=== PATIENT | female | born 1970 | race Caucasian/White ===

== ENCOUNTER 2018-01-03 11:26 | Emergency (ER) | payer OTHER ==
[2018-01-03 11:33] VITALS: BP 146/94
[2018-01-03] MEDS ORDERED: Fluconazole 150 MG (NF) 150 MG TAB PO ONE (11:50)
--- NOTE | 2018-01-03 13:53 | ED ---
Emeterio Prater Gabriel, scribed for Renan Mohamud MD on 01/03/18 at 1144 . Skin Complaint - HPI Summary HPI Summary: This patient is a 47 year old F presenting to [facility] [place] after she went to the pharmacy to get some hydrocortisone cream for a rash caused by a bug bite. And when the pharmacist saw the rash she was sent her here to be checked for lyme disease. She is unaware when she got the rash but it has been less than 72 hours. The patient rates the pain 4/10 in severity. Patient reports a itching bullseye rash on her right calf. Patient denies fever and chills. - History of Current Complaint Chief Complaint: UCSkin Stated Complaint: TICK BITE Hx Obtained From: Patient Onset/Duration: Still Present Skin Exposure Onset/Duration: Days Ago Timing: Constant Onset Severity: Mild Current Severity: Mild Pain Intensity: 4 Pain Scale Used: 0-10 Numeric Skin Location: Leg Associated Signs & Symptoms: Negative - fevere and chills - Allergy/Home Medications Allergies/Adverse Reactions: Allergies Allergy/AdvReac Type Severity Reaction Status Date / Time epinephrine Allergy Tachycardia Verified 01/03/18 11:33 Home Medications: Home Medications Cholecalciferol (Vitamin D3) [Vitamin D3] 1,000 unit PO 01/03/18 [History] PMH/Surg Hx/FS Hx/Imm Hx Endocrine/Hematology History: Denies: Hx Diabetes, Hx Thyroid Disease Cardiovascular History: Denies: Hx Hypercholesterolemia, Hx Hypertension, Hx Peripheral Vascular Disease Respiratory History: Denies: Hx Chronic Obstructive Pulmonary Disease (COPD) Musculoskeletal History: Denies: Hx Arthritis, Hx Rheumatoid Arthritis, Hx Osteoporosis Sensory History: Denies: Hx Cataracts, Hx Contacts or Glasses, Hx Glaucoma Opthamlomology History: Denies: Hx Cataracts, Hx Contacts or Glasses, Hx Glaucoma Neurological History: Denies: Hx Headaches, Hx Seizures, Hx Transient Ischemic Attacks (TIA) Psychiatric History: Denies: Hx Anxiety, Hx Depression - Cancer History Hx Chemotherapy: No Hx Radiation Therapy: No - Surgical History Surgery Procedure, Year, and Place: ACL REPAIR IN BOTH KNEES Infectious Disease History: No Infectious Disease History: Denies: Traveled Outside the [place] in Last 30 Days - Family History Known Family History: Negative: Respiratory Disease, Seizure Disorder - Social History Alcohol Use: Occasionally Hx Substance Use: No Substance Use Type: Reports: None Hx Tobacco Use: No Smoking Status (MU): Never Smoked Tobacco Review of Systems Negative: Fever, Chills Positive: Rash All Other Systems Reviewed And Are Negative: Yes Physical Exam - Summary Physical Exam Summary: VITAL SIGNS: Reviewed. GENERAL: Patient is a well-developed and nourished female who is lying comfortable in the stretcher. Patient is not in any acute respiratory distress. HEAD AND FACE: Normocephalic EYES: PERRLA, EOMI x 2. EARS: Hearing grossly intact. MOUTH: Oropharynx within normal limits. NECK: Supple, trachea is midline, no adenopathy, no JVD, no carotid bruit. CHEST: Symmetric, no tenderness at palpation LUNGS: Clear to auscultation bilaterally. No wheezing or crackles. CVS: Regular rate and rhythm, S1 and S2 present, no murmurs or gallops appreciated. ABDOMEN: Soft, non-tender. Bowel sounds are normal. No abdominal abnormal pulsations. EXTREMITIES: Full ROM in all major joints, no edema, no cyanosis or clubbing. NEURO: Alert and oriented x 3. No acute neurological deficits. Speech is normal and follows commands. SKIN: bullseye rash at the right calf Triage Information Reviewed: Yes Vital Signs On Initial Exam: Initial Vitals Temp Pulse Resp BP Pulse Ox 98.9 F 93 18 146/94 97 01/03/18 11:30 01/03/18 11:30 01/03/18 11:30 01/03/18 11:30 01/03/18 11:30 Vital Signs Reviewed: Yes Diagnostics - Vital Signs Vital Signs Temp Pulse Resp BP Pulse Ox 01/03/18 11:30 98.9 F 93 18 146/94 97 - Laboratory Lab Statement: Any lab studies that have been ordered have been reviewed, and results considered in the medical decision making process. Course/Dx - Course Assessment/Plan: Please see bull's-eye rash with erythema and pain in the right calf. Since she reports that she [place] in the endemic area for Lyme I will treat the patient with doxycycline for 14 days. Patient will follow-up with primary care physician. She was recommended to return to the urgent care of [facility] emergency room if the symptoms worsen. She understands and agrees. She is hemodynamically stable and she is alert and oriented 3. - Diagnoses Provider Diagnoses: Tick bite Discharge - Sign-Out/Discharge Documenting (check all that apply): Discharge/Admit/Transfer - Discharge Plan Condition: Stable Disposition: HOME Prescriptions: DOXYcycline CAP(*) [DOXYcycline 100MG CAP(*)] 100 mg PO BID #20 cap Fluconazole [Diflucan 150 MG (NF)] 150 mg PO ONCE #1 tab Patient Education Materials: Tick Bite (ED) Referrals: Yoli Haywood MD [Primary Care Provider] - Additional Instructions: Take medications as instructed Increase your fluid intake Return to the UC if symptoms worsen - Billing Disposition and Condition Condition: STABLE Disposition: HOME The documentation as recorded by the Emeterio viveros Gabriel accurately reflects the service I personally performed and the decisions made by , Renan Mohamud MD.
== END 2018-01-03 11:55 | disposition home or self-care (01) ==
LOC: UCEAST 11:26
DX: S80.861A Insect bite (nonvenomous), right lower leg, initial encounter (principal); W57.XXXA Bitten or stung by nonvenomous insect and other nonvenomous arthropods, initial encounter; Y93.9 Activity, unspecified; Y92.9 Unspecified place or not applicable; R21 Rash and other nonspecific skin eruption; Z88.8 Allergy status to other drugs, medicaments and biological substances
CPT/HCPCS: 99212; G0463

== ENCOUNTER 2018-01-12 12:36 | Emergency (ER) | payer OTHER ==
[2018-01-12 13:59] VITALS: BP 140/88
--- NOTE | 2018-01-12 16:22 | UC ---
FLU HPI - HPI Summary HPI Summary: Patient is a 47-year-old female presenting to the ED with diffuse myalgias, arthralgias, posterior neck pain and fever. She has had the symptoms intermittently over the past few days. Fever began last evening and dissipated by this morning with some Tylenol. She was seen 9 days ago for a possible tick bite to the right lateral lower extremity with a bull's-eye rash. She was started on a 10 day course of doxycycline and is currently on day 9. She does not recall getting a tick bite. She has never been tested for Lyme before. She is also complaining of a yeast infection. Denies any other symptoms or complaints at this time. She states "I feel like I have the flu." - History of Current Complaint Chief Complaint: UCGeneralIllness Stated Complaint: DIZZY, FLU LIKE SYMPTOMS Time Seen by Provider: 01/12/18 14:33 Hx Obtained From: Patient, Family/Chief Jailer Hx Last Menstrual Period: 01/11/18 ?: No Onset/Duration: Sudden Onset Severity Currently: Mild Severity Initially: Mild Pain Intensity: 4 Pain Scale Used: 0-10 Numeric Associated Signs & Symptoms: Positive: Fever - yesterday, Myalgia - Risk Factors Influenza Risk Factors: Negative - Allergy/Home Medications Allergies/Adverse Reactions: Allergies Allergy/AdvReac Type Severity Reaction Status Date / Time epinephrine Allergy Tachycardia Verified 01/12/18 13:51 Home Medications: Home Medications DOXYcycline CAP(*) [DOXYcycline 100MG CAP(*)] 100 mg PO BID 01/12/18 [History Confirmed 01/12/18] Escitalopram Oxalate [Lexapro 10 mg] 10 mg PO DAILY 01/12/18 [History Confirmed 01/12/18] PMH/Surg Hx/FS Hx/Imm Hx Previously Healthy: Yes - Surgical History Surgical History: Yes Surgery Procedure, Year, and Place: ACL REPAIR IN BOTH KNEES - Family History Known Family History: Negative: Respiratory Disease, Seizure Disorder - Social History Occupation: Employed Full-time Lives: With Family Alcohol Use: None Substance Use Type: None Smoking Status (MU): Never Smoked Tobacco Review of Systems Constitutional: Negative Respiratory: Negative Cardiovascular: Negative Motor: Negative Neurovascular: Negative Musculoskeletal: Myalgia Neurological: Negative Psychological: Negative Is Patient Immunocompromised?: No All Other Systems Reviewed And Are Negative: Yes Physical Exam Triage Information Reviewed: Yes Appearance: Well-Appearing, Ill-Appearing Vital Signs: Initial Vital Signs Temp 98.2 F 01/12/18 13:52 Pulse 92 01/12/18 13:52 Resp 18 01/12/18 13:52 BP 140/88 01/12/18 13:52 Pulse Ox 100 01/12/18 13:52 Vital Signs Reviewed: Yes Eye Exam: Normal Neck exam: Normal Neck: Positive: Supple, No Lymphadenopathy Respiratory Exam: Normal Respiratory: Positive: Chest non-tender Cardiovascular: Positive: RRR Musculoskeletal Exam: Normal Musculoskeletal: Positive: Strength Intact, ROM Intact Neurological Exam: Normal Neurological: Positive: Alert, Muscle Tone Normal Psychological: Positive: Normal Response To Family, Age Appropriate Behavior Skin Exam: Normal - no EM rash Flu Course/Dx - Course Course Of Treatment: During the course of treatment, the patient is evaluated for Lyme vs. disseminated Lyme vs. reaction to doxycycline vs. other viral illness. There is no evidence of neurological symptoms including visual changes , headache, foot drop, wristdrop or facial droops. No evidence of a carditis. I do not believe this is a reaction from her doxycycline as she just began symptoms 2 days ago but has been on doxycycline for 9 days. This is likely a reaction of Lyme, potentially an early disseminated infection as she currently has fever, malaise, myalgia. I have discussed obtaining a Lyme serology at this time and extending her course of doxycycline for 21 days. She is to follow -up with Dr. Acosta. Prior to discharge, nursing staff states they are unable to perform the Lyme today as it will not be sent out for 3 days, and lab will not run at this time. Flu swab obtained based on patient's request. Lungs are CTA. RRR. She is afebrile. I discussed with her at length on needing to go to the ED for any worsening or changing symptoms, these are discussed with the patient. She understands the strict return precautions. - Differential Dx/Diagnosis Provider Diagnoses: Lyme Disease Discharge - Sign-Out/Discharge Documenting (check all that apply): Discharge/Admit/Transfer - Discharge Plan Condition: Stable Disposition: HOME Prescriptions: DOXYcycline CAP(*) [DOXYcycline 100MG CAP(*)] 100 mg PO BID #22 cap Fluconazole [Diflucan 150 MG (NF)] 150 mg PO ONCE #1 tab Patient Education Materials: Lyme Disease (ED) Referrals: Yoli Haywood MD [Primary Care Provider] - Nikky WHARTON,Miguel Austin [Medical Doctor] - Additional Instructions: I will extend your antibiotic for a 21 day course Diflucan has been prescribed Please take other probiotics on opposite schedule of your antibiotics Follow up with Dr. Acosta If you develop any worsening symptoms - return to the ED!! - Billing Disposition and Condition Condition: STABLE Disposition: HOME
== END 2018-01-12 16:00 | disposition home or self-care (01) ==
LOC: UCEAST 12:36
DX: A69.20 Lyme disease, unspecified (principal); Z88.8 Allergy status to other drugs, medicaments and biological substances
CPT/HCPCS: 87502; 99212; G0463